=== PATIENT | male | born 1955 | race Caucasian/White ===

== ENCOUNTER 2018-10-01 16:45 | Inpatient (IN) | payer BC, OTHER ==
[~2018-10-01] VITALS: Ht 190.5 cm; Wt 99.7 kg
[2018-10-01] VITALS (125 sets, daily range): O2SAT 47–100
[2018-10-01] MEDS ORDERED: GLUCOPHAGE1000 MG PO (17:03)
[2018-10-01] MEDS ORDERED: AMARYL 2MG T2 MG/TAB PO (17:03)
[2018-10-01] MEDS ORDERED: TRADJENTA5 MG PO (17:03)
[2018-10-01] MEDS ORDERED: PRINIVIL10 MG PO (17:04)
[2018-10-01] MEDS ORDERED: CRESTOR 10MG10 MG PO (17:04)
[2018-10-01] MEDS ORDERED: PRIL40 PO (17:04)
[2018-10-01] MEDS ORDERED: VENTOLIN0.09 MG IH (17:04)
[2018-10-01] MEDS ORDERED: ASPIRIN 81M81 MG/TA2 PO (17:05)
[2018-10-01] MEDS ORDERED: CENTRUM SILVER1 TAB PO (17:05)
[2018-10-01] MEDS ORDERED: VITAMIN D31000 I1 PO (17:05)
[2018-10-01] MEDS ORDERED: SYNTHROID0.075 MG/T PO (17:05)
[2018-10-01 17:07] LABS: BASO # 0.2 (0.0-0.2); EOS % 6.7 % (0-4.0); GRAN # 8.6 (1.4-6.5); GRAN % 58.7 % (42.2-75.2); HEMOGLOBIN 17.5 g/dl (13.5-18.0); LYMPH # 3.6 (1.2-3.4); LYMPH % 24.3 % (20.0-51.0); MEAN CELL VOLUME 90 fl (80.0-100.0); MEAN CORPUSCULAR HEMOGLOBIN 30 pg (27.0-31.0); MEAN CORPUSCULAR HGB CONC 33 g/dl (33.0-37.0); MEAN PLATELET VOLUME 9.9 fl (7.4-10.4); MONO # 1.3 (0.1-0.6); MONO % 8.9 % (1.7-9.3); PLATELET COUNT 343 K/mm3 (130-400); RED BLOOD COUNT 5.86 M/mm3 (4.20-5.60); REDCELL DISTRIBUTION WIDTH-CV 13.3 % (11.5-14.5)
[2018-10-01 17:08] LABS: HEMATOCRIT 52.9 % (42.0-52.0)
[2018-10-01 17:18] LABS: ALANINE AMINOTRANSFERASE 26 U/L (21-72); ALBUMIN 4.6 gm/dL (3.5-5.0); ALKALINE PHOSPHATASE 85 U/L (50-136); ANION GAP 16 mmol/L (7-16); AST,SGOT 33 U/L (15-37); BILIRUBIN,TOTAL 0.4 mg/dL (0.0-1.0); BLOOD UREA NITROGEN 20 mg/dL (9-20); C-REACTIVE PROTEIN 0.8 mg/dL (0.0-0.9); CALCIUM 9.8 mg/dL (8.4-10.2); CARBON DIOXIDE 25 mmol/L (22-30); CHLORIDE 99 mmol/L (98-107); CREATININE, serum 1.29 (0.66-1.25); GLUCOSE 171 mg/dL (74-106); POTASSIUM 4.2 mmol/L (3.4-5.0); SODIUM 140 mmol/L (137-145); TOTAL PROTEIN 7.9 gm/dL (6.4-8.2)
[2018-10-01 17:39] LABS: TROPONIN-I < 0.012 ng/mL (0.000-0.035)
[2018-10-01 17:47] LABS: PROTHROMBIN TIME 11.3 SECONDS (9.7-12.8)
[2018-10-01 17:48] LABS: PARTIAL THROMBOPLASTIN TIME 27.4 SECONDS (26.0-37.0)
[2018-10-01 19:38] LABS: MAGNESIUM 1.8 mg/dL (1.6-2.3)
--- NOTE | 2018-10-01 20:04 | NUR ---
Patient arrived accompanied by Carolynn ED RN. Patient assisted to ICU bed from ED bed at this time, no issues to report. WINSTON Young and Dr. Case notified of arrival. Assessment completed and charted, will assume care of patient at this time.
[2018-10-01 20:10] LABS: TSH w REFLEX 4.17 uIU/mL (0.465-4.680)
--- NOTE | 2018-10-01 21:20 | NUR ---
*2039: Dr. Case in to place central line on patient, this nurse and FABIOLA Cordova assisted with procedure. *2119: Dr. Case finished at this time, okayed utilization of central line at this time.
[2018-10-01 22:37] LABS: COLLECTION METHOD CLEAN CATCH
[2018-10-01 22:46] LABS: PH 5 (5-8); SQUAMOUS EPITHELIAL None Seen /hpf; URINE APPEARANCE Clear; URINE BACTERIA None Seen /hpf; URINE BILIRUBIN Negative (NEGATIVE); URINE BLOOD Negative (NEGATIVE); URINE COLOR Yellow; URINE GLUCOSE Negative (NEGATIVE); URINE KETONE 1+ (NEGATIVE); URINE LEUKOCYTE ESTERASE Negative (NEGATIVE); URINE NITRATE Negative (NEGATIVE); URINE PROTEIN(semi-quant) Negative (NEGATIVE); URINE RBC 0-2 /hpf; URINE UROBILINOGEN Negative (NEGATIVE)
[2018-10-02] VITALS (718 sets, daily range): BP systolic 104–152; BP diastolic 57–70; PULSE 64–105; TEMP 97.9–99.4; O2SAT 88–100
[2018-10-02 00:49] LABS: ARTERIAL BLD GAS O2 SATURATION 94.1 % (92-100); ARTERIAL BLD GAS TCO2 CT 19.5; ARTERIAL BLOOD GAS BASE EXCESS -4.6 (-2-2); ARTERIAL BLOOD GAS HCO3 18.5 meq/L (22-26); ARTERIAL BLOOD GAS pH 7.41 (7.35-7.45)
[2018-10-02 04:53] LABS: BASO # 0.1 (0.0-0.2); BASO % 0.4 % (0.0-2.0); EOS # 0.1 (0.0-0.7); EOS % 0.7 % (0-4.0); GRAN # 11.1 (1.4-6.5); GRAN % 82.6 % (42.2-75.2); HEMATOCRIT 43.8 % (42.0-52.0); LYMPH # 1.3 (1.2-3.4); LYMPH % 9.6 % (20.0-51.0); MEAN CELL VOLUME 89 fl (80.0-100.0); MEAN CORPUSCULAR HEMOGLOBIN 30 pg (27.0-31.0); MEAN CORPUSCULAR HGB CONC 33 g/dl (33.0-37.0); MEAN PLATELET VOLUME 9.9 fl (7.4-10.4); MONO # 0.9 (0.1-0.6); MONO % 6.4 % (1.7-9.3); PLATELET COUNT 288 K/mm3 (130-400); REDCELL DISTRIBUTION WIDTH-CV 13.8 % (11.5-14.5)
[2018-10-02 04:54] LABS: HEMOGLOBIN 14.6 g/dl (13.5-18.0)
[2018-10-02 05:04] LABS: ALBUMIN 3.1 gm/dL (3.5-5.0); BILIRUBIN,TOTAL 0.3 mg/dL (0.0-1.0); CALCIUM 7.6 mg/dL (8.4-10.2); CREATININE, serum 1.09 (0.66-1.25); POTASSIUM 4.7 mmol/L (3.4-5.0); TOTAL PROTEIN 5.5 gm/dL (6.4-8.2)
[2018-10-02 05:05] LABS: INR 1.2 (0.8-3.0); PROTHROMBIN TIME 13.6 SECONDS (9.7-12.8)
--- NOTE | 2018-10-02 07:15 | NUR ---
RECEIVED REPORT FROM Tracey HICKS. PT DENIES PAIN OR NEEDS AT THIS TIME. DR. CASTILLO HERE TO SEE PT
--- NOTE | 2018-10-02 11:30 | NUR ---
ASHFORD CATHETER REMOVED AFTER PERICARE PERFORMED. PER PT REQUEST AND PHYSCAIN ORDER
--- NOTE | 2018-10-02 11:42 | NUR ---
SW attended clinical rounds and met with patient to discuss discharge planning. Patient lives in [place], [place]. Patient is visiting his cousin, Lili, here in [place]. Patient plans to stay with Lili for a few days before returning to [place]. Patient reports his PCP, Dr James Rdz, and preferred pharmacy, [facility], is in [place] but patient will obtain any prescribed medications at the time of discharge at [facility]. Patient is independent with all ADLs and does not use any DME of Home Health services. Patient reports his DPOA-HC is his brother, Geovany. Patient will transfer to the Medical floor. SW does not anticipate any discharge needs.
--- NOTE | 2018-10-02 12:00 | NUR ---
PT UP TO RECLINER WITH NO ISSUES. STAND BY ASSIST
--- NOTE | 2018-10-02 12:24 | NUR ---
Initial visit; Tod kelly his thanked [employer] for looking in on them and offering spiritual care. Patient from out of town and thanked [employer] for offering God's blessings.
--- NOTE | 2018-10-02 14:00 | NUR ---
REPORT GIVEN TO MANUEL HICKS. PT MOVED WITH BELONGINGS TO 323.
--- NOTE | 2018-10-02 14:00 | NUR ---
Patient to room 323 by wheelchair from ICU. Patient oreinted to room, bed and location. A&Ox4, denies pain and discomfort. VSS. IV CDI. No further needs expressed from patient. Call light within reach
--- NOTE | 2018-10-02 18:00 | NUR ---
Patient just finished with dinner. Took a nap after coming up from the ICU. Denies pain and discomfort. IV's CDI. Patient voided after having linares removed. VSS. No further needs expressed from patient. Call light within reach. Will continue to monitor
--- NOTE | 2018-10-02 18:48 | NUR ---
Report given to FABIOLA Lopez.
[2018-10-02 20:33] LABS: COMPLEMENT-C4 32 mg/dL (18-55)
--- NOTE | 2018-10-02 22:00 | NUR ---
Assessment complete. IV sites in R AC, L wrist, and L IJ. DC'd IV in R AC with cath intact. Repositions self in bed. Denies pain. Call light in reach. HRR, LS CTA, BS x4.
[2018-10-03] VITALS: BP 115/56; PULSE 69; TEMP 98.5
[2018-10-03 04:00] VITALS: BP 114/62; PULSE 66; TEMP 97.9
[2018-10-03 07:04] LABS: BASO # 0.1 (0.0-0.2); BASO % 0.5 % (0.0-2.0); EOS # 0.8 (0.0-0.7); EOS % 7.4 % (0-4.0); GRAN # 6.9 (1.4-6.5); GRAN % 61.3 % (42.2-75.2); LYMPH # 2.4 (1.2-3.4); LYMPH % 21.6 % (20.0-51.0); MEAN CELL VOLUME 91 fl (80.0-100.0); MEAN CORPUSCULAR HGB CONC 33 g/dl (33.0-37.0); MEAN PLATELET VOLUME 10.5 fl (7.4-10.4); MONO % 8.9 % (1.7-9.3); PLATELET COUNT 220 K/mm3 (130-400); RED BLOOD COUNT 3.83 M/mm3 (4.20-5.60)
[2018-10-03 07:10] LABS: INR 1.1 (0.8-3.0); PROTHROMBIN TIME 13.3 SECONDS (9.7-12.8)
[2018-10-03 07:13] LABS: ALBUMIN 3.1 gm/dL (3.5-5.0); BILIRUBIN,TOTAL 0.3 mg/dL (0.0-1.0); CREATININE, serum 1.07 (0.66-1.25); POTASSIUM 3.7 mmol/L (3.4-5.0); TOTAL PROTEIN 5.4 gm/dL (6.4-8.2)
[2018-10-03 07:15] LABS: HEMATOCRIT 34.8 % (42.0-52.0); MEAN CORPUSCULAR HEMOGLOBIN 30 pg (27.0-31.0)
[2018-10-03 07:16] LABS: HEMOGLOBIN 11.5 g/dl (13.5-18.0)
[2018-10-03 07:44] VITALS: BP 121/57; PULSE 66; TEMP 98
--- NOTE | 2018-10-03 07:59 | NUR ---
Pt is awake and A/Ox4, sitting up in bed. He denies pain or discomfort at this time. Saline lock to left wrist and triple lumen to left IJ are free of complications. Pt is up to chair with SBA. Denies any other needs.
[2018-10-03 11:40] VITALS: BP 143/70; PULSE 66; TEMP 98.1
--- NOTE | 2018-10-03 12:06 | NUR ---
First visit from the agile business analyst. No needs right now.
--- NOTE | 2018-10-03 15:16 | NUR ---
Pt was discharged home from hospital. All discharge instructions were reviewed with pt who expressed understanding and had no questions. Saline lock removed, catheter tip intact. Triple lumen to left IJ was removed per order, dressing applied. Pt was escorted out of facility by staff.
[2018-10-04 11:10] LABS: COMPLEMENT C1 ESTERASE ANTIGEN 22 mg/dL (19 - 37)
== END 2018-10-03 15:17 | disposition home or self-care (01) | DRG 871 ==
LOC: COL.ER 16:45 → ICU 19:13 → SURG 10-02 13:53
PROVIDERS: Emergency Medicine; Internal Medicine Gastroenterology; Nurse Practitioner Family; ADMIT Hospitalist
PROC: 02HV33Z Insertion of Infusion Device into Superior Vena Cava, Percutaneous Approach (ICD-10-PCS; principal; 2018-10-01)
DX: A41.9 Sepsis, unspecified organism (principal); R65.21 Severe sepsis with septic shock; N17.9 Acute kidney failure, unspecified; K52.9 Noninfective gastroenteritis and colitis, unspecified; T78.3XXA Angioneurotic edema, initial encounter; I10 Essential (primary) hypertension; Z66 Do not resuscitate; T44.5X5A Adverse effect of predominantly beta-adrenoreceptor agonists, initial encounter; E78.5 Hyperlipidemia, unspecified; E78.00 Pure hypercholesterolemia, unspecified; E11.9 Type 2 diabetes mellitus without complications; K21.9 Gastro-esophageal reflux disease without esophagitis; E03.9 Hypothyroidism, unspecified; R55 Syncope and collapse; Z79.84 Long term (current) use of oral hypoglycemic drugs; Z79.890 Hormone replacement therapy; Z79.82 Long term (current) use of aspirin
CPT/HCPCS: 99223-AI; J1644; J1720; J1815; J1956; J2405; J7030; Q9967